=== PATIENT | female | born 1945 | race Caucasian/White ===

== ENCOUNTER 2016-09-24 15:57 | Inpatient (IN) | payer MEDICARE, BC ==
[~2016-09-24] VITALS: Ht 165.1 cm; Wt 98.8 kg
[2016-10-08] MEDS ORDERED: VITA500T4 PO (09:49)
[2016-10-08] MEDS ORDERED: OMEP20TA PO (09:49)
[2016-10-08] MEDS ORDERED: LEVO25TA4 PO (09:49)
[2016-10-08] MEDS ORDERED: LEVO200T4 PO (09:49)
[2016-10-08] MEDS ORDERED: TRIA37.53 PO (09:49)
[2016-10-11 06:00] VITALS: BP 176/128; PULSE 83; RESP 16; TEMP 97.9; O2SAT 95
[2016-10-11] MEDS ORDERED: metroNIDAZOLE 500 MG INJ 100 ML IV SCH (07:15)
[2016-10-11] MEDS ORDERED: POVIDONE IODINE 5% (ANTISEPSIS KIT) 4 APPLICATIONS EACH NARE PRN (07:15)
[2016-10-11] MEDS ORDERED: METOPROLOL TARTRATE 25 MG TAB PO PRN (07:15)
[2016-10-11] MEDS ORDERED: CHLORHEXIDINE GLUCONATE 2 % 1 PACK (2 CLOTHS) TOPICAL PRN (07:15)
[2016-10-11] MEDS ORDERED: SODIUM CHLORID 0.9% 500 ML IV PRN (07:15)
[2016-10-11] MEDS ORDERED: APREPITANT 40 MG CAP PO SCH (07:15)
[2016-10-11] MEDS ORDERED: SCOPOLAMINE 1.5 MG PATCH T-DERMAL SCH (07:15)
[2016-10-11] MEDS ORDERED: LACTATED RINGER'S 1000 ML IV PRN (07:15)
[2016-10-11] MEDS ORDERED: ceFAZolin 2 GM PREMIX 50 ML IV SCH (07:15)
[2016-10-11] MEDS ORDERED: ACETAMINOPHEN 1000 MG/100 ML VIAL IV SCH (07:15)
[2016-10-11] MEDS ORDERED: INSULIN HUMAN REGULAR 1,000 UNITS/10 ML VIAL SQ PRN (07:15)
[2016-10-11] MEDS ORDERED: ONDANSETRON HCL 4 MG/2 ML VIAL IV PUSH SCH (07:15)
[2016-10-11] MEDS ORDERED: BUPIVACAINE/EPINEPHRINE 0.25% 50 ML VIAL ONE (08:34)
[2016-10-11] MEDS ORDERED: MIDAZOLAM HCL 2 MG/2 ML VIAL ONE (09:54)
[2016-10-11] MEDS ORDERED: FAMOTIDINE 20 MG/2 ML VIAL ONE (09:54)
[2016-10-11] MEDS ORDERED: METHYLENE BLUE 100 MG/10 ML VIAL NG ONE (10:42)
[2016-10-11] MEDS ORDERED: LACTATED RINGER'S 1000 ML INJ 1,000 ML IV ONE (11:59)
[2016-10-11] MEDS ORDERED: NEOSTIGMINE 3 MG/3 ML SYR IV ONE (11:59)
[2016-10-11] MEDS ORDERED: ONDANSETRON HCL 4 MG/2 ML VIAL IV PUSH ONE (11:59)
[2016-10-11] MEDS ORDERED: PROPOFOL 200 MG/20 ML AMP IV ONE (11:59)
[2016-10-11] MEDS ORDERED: Post-op Orders (for Pharmacy) MISC OTHER ONE (12:30)
[2016-10-11] MEDS ORDERED: ENALAPRILAT 1.25 MG/ML VIAL IV PUSH PRN (12:30)
[2016-10-11] MEDS ORDERED: ONDANSETRON HCL 4 MG/2 ML VIAL IV PRN (12:30)
[2016-10-11] MEDS ORDERED: ACETAMINOPHEN 325MG/HYDROcodone 7.5MG/15ML UDC PO PRN ×2 (12:30)
[2016-10-11] MEDS ORDERED: SODIUM CHLORIDE 0.9% FLUSH 10 ML FLUSH IV FLUSH PRN ×2 (12:30)
[2016-10-11] MEDS ORDERED: diphenhydrAMINE HCL 50 MG/ML VIAL IV PRN (12:30)
[2016-10-11] MEDS ORDERED: diphenhydrAMINE HCL ELIXIR 12.5 MG/5 ML CUP PO PRN (12:30)
[2016-10-11] MEDS ORDERED: NALOXONE HCL 0.4 MG/ML AMP IV PRN (12:30)
[2016-10-11] MEDS ORDERED: Post-op Orders (for Pharmacy) MISC XX ONE (12:30)
[2016-10-11] MEDS ORDERED: MORPHINE SULFATE 30 MG/30 ML PCA IV SCH (12:45)
[2016-10-11] MEDS ORDERED: HYDROmorphone HCL 2 MG TAB PO PRN (13:00)
[2016-10-11] MEDS ORDERED: fentaNYL CITRATE 250 MCG/5 ML AMP ONE ×2 (13:08→16:34)
[2016-10-11] MEDS ORDERED: *morphine SULFATE 8 MG/ML PERIprocedure ONLY ONE ×2 (13:12→13:27)
[2016-10-11] MEDS: 1/2 NS + KCL 20 MEQ INJ 1,000 ML IV SCH ×2 (13:14→20:13)
[2016-10-11] MEDS ORDERED: DO NOT ADM ANY ANTICOAGULANT DRUGS PRN (13:30)
[2016-10-11] MEDS: METOCLOPRAMIDE HCL 10 MG/2 ML VIAL IV PUSH SCH ×2 (13:53→20:15)
[2016-10-11 14:30] VITALS: BP 118/56; PULSE 90; RESP 18; TEMP 97.2; O2SAT 93
[2016-10-11] MEDS: metroNIDAZOLE 500 MG INJ 100 ML IV SCH ×2 (15:35→22:20)
[2016-10-11 16:00] VITALS: BP 116/58; PULSE 87; RESP 16; TEMP 97; O2SAT 94
[2016-10-11] MEDS ORDERED: ENOXAPARIN SODIUM 40 MG/0.4 ML SYRINGE SQ SCH (17:00)
[2016-10-11 20:00] VITALS: BP 117/57; PULSE 96; RESP 18; TEMP 96.4; O2SAT 92
[2016-10-11] MEDS: SODIUM CHLORIDE 0.9% FLUSH 10 ML FLUSH IV FLUSH SCH (20:13)
[2016-10-11] MEDS ORDERED: SODIUM CHLORIDE 0.9% FLUSH 10 ML FLUSH IV FLUSH SCH (21:00)
[2016-10-11] MEDS: PCA - TOTAL MG MORPHINE DELIVERED PER SHIFT SCH (22:00)
[2016-10-11] MEDS: RESP: ALBUTEROL 2.5 MG/3 ML NEB (SCH) INH (22:43)
[2016-10-11 22:46] VITALS: O2SAT 95
[2016-10-12] MEDS: 1/2 NS + KCL 20 MEQ INJ 1,000 ML IV SCH ×4 (00:38→11:10)
[2016-10-12] MEDS: METOCLOPRAMIDE HCL 10 MG/2 ML VIAL IV PUSH SCH ×2 (00:41→08:27)
[2016-10-12 04:00] VITALS: BP 135/65; PULSE 115; RESP 20; TEMP 99.8; O2SAT 92
[2016-10-12] MEDS: RESP: ALBUTEROL 2.5 MG/3 ML NEB (SCH) INH ×5 (04:00→16:05)
[2016-10-12 05:44] LABS: AUTOMATED NEUTROPHIL # 11.4 TH/MM3 (1.8-7.7); BASOPHIL % 0.3 % (0.0-2.0); HEMATOCRIT 35.7 % (35.0-46.0); HEMO FLAGS DIFF FINAL; LYMPH % 8.7 % (9.0-44.0); LYMPHOCYTE # 1.2 TH/MM3 (1.0-4.8); MEAN CELL VOLUME 90.3 FL (80.0-100.0); MEAN CORPUSCULAR HEMOGLOBIN 30.5 PG (27.0-34.0); MEAN CORPUSCULAR HGB CONC 33.8 % (32.0-36.0); MONO % 6.1 % (0.0-8.0); NEUT % 84.9 % (16.0-70.0); PLATELET COUNT 279 TH/MM3 (150-450); RED BLOOD COUNT 3.95 MIL/MM3 (4.00-5.30); RED CELL DISTRIBUTION WIDTH 12.5 % (11.6-17.2); WHITE BLOOD COUNT 13.4 TH/MM3 (4.0-11.0)
[2016-10-12] MEDS: PCA - TOTAL MG MORPHINE DELIVERED PER SHIFT SCH ×2 (06:00→11:12)
[2016-10-12 06:02] LABS: BICARBONATE 26.7 MEQ/L (21.0-32.0); MAGNESIUM 1.6 MG/DL (1.5-2.5)
[2016-10-12 08:00] VITALS: BP 116/56; PULSE 80; RESP 19; TEMP 99.3; O2SAT 92
[2016-10-12] MEDS: metroNIDAZOLE 500 MG INJ 100 ML IV SCH (08:29)
[2016-10-12] MEDS: SODIUM CHLORIDE 0.9% FLUSH 10 ML FLUSH IV FLUSH SCH (08:32)
[2016-10-12 08:45] VITALS: O2SAT 88
[2016-10-12] MEDS ORDERED: PANTOPRAZOLE SOD 40 MG DELAYED RELEASE TAB PO SCH (09:00)
[2016-10-12] MEDS ORDERED: LEVOTHYROXINE SODIUM 200 MCG TAB PO SCH (10:00)
[2016-10-12] MEDS: POTASSIUM CHLOR 20 MEQ PREMIX 100 ML IV SCH ×2 (11:10→13:00)
--- NOTE | 2016-10-12 11:33 | HHI.PR ---
Subjective Subjective Notes 71yo female POD#1 RNY. Laying in bed in no acute distress. Tolerating fluids. Passing flatus Objective Vitals/I&O Vital Signs Date Time Temp Pulse Resp B/P Pulse Ox O2 Delivery O2 Flow Rate FiO2 10/12/16 08:54 Room Air 10/12/16 08:45 88 21 10/12/16 08:00 99.3 80 19 116/56 10/12/16 02:00 2.00 Labs Laboratory Tests Test 10/12/16 04:41 White Blood Count 13.4 Red Blood Count 3.95 Hemoglobin 12.0 Hematocrit 35.7 Mean Corpuscular Volume 90.3 Mean Corpuscular Hemoglobin 30.5 Mean Corpuscular Hemoglobin 33.8 Concent Red Cell Distribution Width 12.5 Platelet Count 279 Mean Platelet Volume 9.3 Neutrophils (%) (Auto) 84.9 Lymphocytes (%) (Auto) 8.7 Monocytes (%) (Auto) 6.1 Eosinophils (%) (Auto) 0.0 Basophils (%) (Auto) 0.3 Neutrophils # (Auto) 11.4 Lymphocytes # (Auto) 1.2 Monocytes # (Auto) 0.8 Eosinophils # (Auto) 0.0 Basophils # (Auto) 0.0 CBC Comment DIFF FINAL Differential Comment Sodium Level 138 Potassium Level 3.0 Chloride Level 98 Carbon Dioxide Level 26.7 Anion Gap 13 Blood Urea Nitrogen 11 Creatinine 0.85 Estimat Glomerular Filtration 66 Rate Random Glucose 147 Calcium Level 8.4 Magnesium Level 1.6 Cardiovascular: Regular Lungs: Clear Abdomen: Post-op tenderness Extremities: Perfused Wound Wound : Wound Location: Abdomen Appearance: Clean & Dry A/P Assessment and Plan Replace K with 40 RONEL Continue with frequent ambulation Continue to increase fluids as tolerated Continue to use IS hourly, deep breath and cough The exam, history, and the medical decision-making described in the above note were completed with the assistance of the mid-level provider. I reviewed and agree with the findings presented. I attest that I had a [id number] encounter with the patient on the same day, and personally performed and documented my assessment and findings in the medical record. Discharge Planning D/C home later today if continues to do well Arnoldo Enrique October 12, 2016 11:33 Dimitry Correa MD October 20, 2016 09:30
[2016-10-12] MEDS ORDERED: TRIA1CAP6 PO (11:37)
[2016-10-12 12:00] VITALS: BP 121/65; PULSE 102; RESP 18; TEMP 99; O2SAT 93
[2016-10-12] MEDS ORDERED: METOCLOPRAMIDE HCL 10 MG/2 ML VIAL IV PUSH PRN (14:00)
[2016-10-12 16:00] VITALS: BP 132/62; PULSE 103; RESP 18; TEMP 99.4; O2SAT 96
[2016-10-12 16:05] VITALS: O2SAT 96
--- NOTE | 2016-10-13 07:36 | MP ---
cc: LESLYE PULIDO DATE OF 1945 DATE OF OPERATION 10/11/2016 PREOPERATIVE DIAGNOSIS Severe obesity with a BMI of 46, complicated by essential hypertension, type 2 diabetes, gastroesophageal reflux disease. POSTOPERATIVE DIAGNOSES 1. Severe obesity with a BMI of 46, complicated by essential hypertension, type 2 diabetes, gastroesophageal reflux disease. 2. Moderate-sized hiatal hernia. PROCEDURE 1. Laparoscopic Marleni-en-Y gastric bypass, 100-cm Marleni limb, antegastric, antecolic. 2. Laparoscopic hiatal hernia repair. SURGEON Leslye Pulido MD COMMISSARY OFFICER MD Dr. Guillermo Dasilva was necessary for assistance during the procedure due to the complexity of the case. Dr. Li was necessary for exposure and manipulation during the operation as well as aiding in the anastomosis. The insurance legal assistant provided by [employer] was used to run the camera as well as man the back table. ANESTHESIA General endotracheal anesthesia. ESTIMATED BLOOD LOSS Scant. FINDINGS Fatty liver. Moderate sized hiatal hernia. SPECIMENS None. COMPLICATIONS None. OPERATION The patient was brought into the operating room and placed on the operating table in supine position. Bilateral sequential inflation devices were placed on the lower extremities, general anesthesia instituted, Morris catheter placed, antibiotics initiated. The abdomen was prepped and draped sterilely. A point 18 cm distal to the xiphoid in the midline was anesthetized with 0.25% Marcaine with epinephrine. A skin incision was made, a 5-mm Optiview port placed under direct vision and pneumoperitoneum created. Under direct vision, a 5-mm left upper quadrant, a 12-mm left upper quadrant, a 12-mm right upper quadrant and 5-mm right upper quadrant ports were placed. Prior to placement of all ports, the skin and peritoneum were anesthetized with 0.25% Marcaine with epinephrine. The patient patient's omentum was taken off of the abdominal wall using a harmonic. It was split down the middle to create a path for the Marleni limb. The ligament of Treitz was identified, a point 40 cm distal identified, the small bowel divided using an [place] Flex staple with a white load, reinforced with SeamGuard. The distal segment was brought up for a distance of 100 cm, enterotomy created in this region, enterotomy created in the biliopancreatic limb and a [id number] stapled jejunojejunostomy created in the usual manner. The mesenteric defect of the jejunojejunostomy was closed with 2-0 Surgidac suture in a running manner. The patient was placed in reverse Trendelenburg position, left side up. The Sivan Flex retractor placed and the left lobe of the liver retracted. After exposure, a hiatal hernia was noted. The left and right crura of the diaphragm was dissected anteriorly as well as posteriorly. The esophagus was retracted into the abdominal cavity, hernia sac excised. The crura of the diaphragm was approximated with 0 silk suture in a [id number]-[id number] manner posteriorly.The angle of His was taken down bluntly duing this dissection, a point 5 cm distal to the GE junction along the lesser curve identified, the lesser sac entered using blunt dissection, the stomach partitioned horizontally using the Mendix Flex stapler blue load. Additional firings were taken toward the angle of His to completely divide the stomach. A gastrotomy was created in the morgan-stomach, enterotomy in the Marleni limb, a gastrojejunostomy created with a stomal opening of 2 cm. An 18-[place] OG tube was placed across the anastomosis. The defect was then closed in two layers of running 2-0 Vicryl. Prior to placement of the second layer, methylene blue was instilled through the OG tube. There was no evidence of extravasation. Evicel was then placed over the gastrojejunostomy, jejunojejunostomy and all staple lines, a 10 flat YARED placed posterior to the gastrojejunostomy. The operative field was inspected. Hemostasis was present. The Sivan Flex retractor was removed. The tubing of the YARED was brought out through the 5-mm port site in the right upper quadrant. The pneumoperitoneum was released, all ports removed, all skin incisions closed with 4-0 Monocryl. The abdominal wall was cleaned and a sterile dressing placed. The patient was awakened and taken to recovery room stable. MD RYAN Gandara/ADEEL /12:45 PM /7:18 AM MARLEY
== END 2016-10-12 17:33 | disposition home or self-care (01) | DRG 621 ==
LOC: HSDI 10-11 05:43 → N07A 10-11 14:24
PROVIDERS: ADMIT Surgery; ATTEND Surgery
PROC: 0BQS4ZZ (ICD-10-PCS; 2016-10-11)
PROC: 0BQR4ZZ (ICD-10-PCS; 2016-10-11)
PROC: 0D164ZA Bypass Stomach to Jejunum, Percutaneous Endoscopic Approach (ICD-10-PCS; principal; 2016-10-11 09:58)
DX: E66.01 Morbid (severe) obesity due to excess calories (principal); E11.9 Type 2 diabetes mellitus without complications; I10 Essential (primary) hypertension; K44.9 Diaphragmatic hernia without obstruction or gangrene; Z68.42 Body mass index [BMI] 45.0-49.9, adult; K21.9 Gastro-esophageal reflux disease without esophagitis; E03.9 Hypothyroidism, unspecified; Z87.891 Personal history of nicotine dependence; Z88.2 Allergy status to sulfonamides
CPT/HCPCS: 80048; 83735; 85025; 94150; 94640; 94664; J0131; J0690; J1650; J2250; J2270; J2405; J2710; J2765; J3010; J3480; J7120; J7613; J8501

== ENCOUNTER 2018-02-05 08:59 | Inpatient (IN) ==
--- NOTE | 2018-02-05 17:14 | P.HP ---
History of Present Illness Primary Care Physician: Dayron Carrillo MD History of Present Illness: 22-year-old female with a history of Marleni-en-Y 15 months ago, hypothyroidism, type 2 diabetes, hypertension, gout presents to the ER after 3 days of suffering with abdominal pain and occasional nausea and vomiting. ER workup revealed a partial small bowel obstruction she was admitted for observation and evaluation by general surgeon. She denies any recent constipation, she denies any recent trauma, no melena or hematochezia. She simply had an unexplained attack of abdominal pain 3 days ago that did not respond to [id number] treatments with MiraLAX, etc. Her finally convinced her to come in for evaluation. He denies any chest pain, shortness of breath, diaphoresis. She has a history of cholecystectomy. She denies any rashes, blistering outbreaks, bruising. Inpatient Certification: I certify that the inpatient services were ordered in accordance with Medicare regulations governing the order. This includes certification that hospital inpatient services are reasonable and necessary and in the case of services not specified as inpatient-only under 42 CFR 419.22(n), that they are appropriately provided as inpatient services in accordance to with the 2-midnight benchmark under 43 CFR 412.3(e) Estimated Total Length of Stay (Days): 4 Plans for Post Hospital Care: Home Review of Systems All other systems reviewed negative except as stated in HPI PMFSH - History History Provided By: Patient - Medical History Medical History: Medical History (Last Reviewed 02/05/18 @ 09:36 by Kwame Campos MD) Cystocele Diabetes Gout H/O: hysterectomy Hypothyroidism Rectocele - Surgical History Surgical History: Surgical History (Last Reviewed 02/05/18 @ 09:36 by Kwame Campos MD) H/O gastric bypass History of cholecystectomy Hx of breast reduction, elective - Family History Family History: Family History (Last Updated 02/05/18 @ 17:09 by Rishi Milian MD) Other Hypertension - Tobacco History Second Hand Smoke Exposure: No Smoking Status: Former smoker - Alcohol History How Often Do You Have a Drink Containing Alcohol: 4 or more times a week - Substance Use History Substance History: No History of Abuse Medications and Allergies Active Medications: Active Medications Enoxaparin Sodium (Lovenox Inj) 40 mg SQ Q24H LUIS Sodium Chloride (Ns Inj) 1,000 mls @ 100 mls/hr IV.CONT .Q10H LUIS Morphine Sulfate (Morphine Inj) 4 mg IV.PUSH Q4H PRN PRN Reason: ABDOMINAL PAIN Ondansetron HCl (Zofran Inj) 4 mg IV.PUSH Q6H PRN PRN Reason: NAUSEA OR VOMITING Sennosides (Senokot) 17.2 mg PO Q12H PRN PRN Reason: Moderate Constipation Allergies Allergy/AdvReac Type Severity Reaction Status Date / Time Sulfa (Sulfonamide Allergy Severe Hives Unverified 02/05/18 09:01 Antibiotics) Home Medications Medication Instructions Recorded Confirmed Type allopurinol 100 mg PO BID 02/05/18 02/05/18 History levothyroxine 200 mcg PO DAILY 02/05/18 02/05/18 History Exam Vital signs: Vital Signs 02/05/18 16:37 Temperature 97.8 F Pulse Rate 80 Respiratory Rate 17 Blood Pressure 146/75 H Pulse Oximetry 93 L Intake & Output 02/04/18 02/05/18 02/05/18 18:59 06:59 18:59 Weight 1000 g Narrative: GENERAL: AAOx3, moderate distress but able to left, adequate nutrition SKIN: Warm and dry, no rashes. HEAD: Atraumatic. Normocephalic. EYES: Pupils equal, round, reactive to light. No scleral icterus. No injection or drainage. ENT: No nasal bleeding or discharge. Moist mucous membranes. NG tube in place NECK: Trachea midline. No JVD. Thyroid size within normal limits. CARDIOVASCULAR: Regular rate and rhythm. No murmur, no gallops, no rubs. RESPIRATORY: Clear and equal to auscultation bilaterally. No crackles, no wheezes. No accessory muscle use. GASTROINTESTINAL: Abdomen is diffusely tender but relatively soft, nondistended , hypoactive bowel sounds. MUSCULOSKELETAL: Extremities without clubbing or cyanosis. No obvious deformities. No edema. NEUROLOGICAL: Awake and alert. No obvious cranial nerve deficits. Motor grossly within normal limits. No focal deficits. Five out of 5 muscle strength in the arms and legs. Normal speech. PSYCHIATRIC: Appropriate mood and affect; insight and judgment normal. Caprini VTE Risk Assessment Caprini VTE Risk Assessment: Moderate/High Risk (score >= 2) Caprini Risk Assessment Model: Point Value = 1 Point Value = 2 Point Value = 3 Point Value = 5 Age 41-60 Minor surgery BMI > 25 kg/m2 Swollen legs Varicose veins or History of unexplained or recurrent spontaneous Oral contraceptives or hormone replacement Sepsis (< 1 month) Serious lung disease, including pneumonia (< 1 month) Abnormal pulmonary function Acute myocardial infarction Congestive heart failure (< 1 month) History of inflammatory bowel disease Medical patient at bed rest Age 61-74 Arthroscopic surgery Major open surgery (> 45 min) Laparoscopic surgery (> 45 min) Malignancy Confined to bed (> 72 hours) Immobilizing plaster cast Central venous access Age >= 75 History of VTE Family history of VTE Factor V Leiden Prothrombin [id number] Lupus anticoagulant Anticardiolipin antibodies Elevated serum homocysteine Heparin-induced thrombocytopenia Other congenital or acquired thrombophilia Stroke (< 1 month) Elective arthroplasty Hip, pelvis, or leg fracture Acute spinal cord injury (< 1 month) Prophylaxis Regimen: Total Risk Factor Score Risk Level Prophylaxis Regimen 0-1 Low Early ambulation 2 Moderate Order ONE of the following: *Sequential Compression Device (SCD) *Heparin 5000 units SQ BID 3-4 Higher Order ONE of the following medications: *Heparin 5000 units SQ TID *Enoxaparin/Lovenox 40 mg SQ daily (WT < 150 kg, CrCl > 30 mL/min) *Enoxaparin/Lovenox 30 mg SQ daily (WT < 150 kg, CrCl > 10-29 mL/min) *Enoxaparin/Lovenox 30 mg SQ BID (WT < 150 kg, CrCl > 30 mL/min) AND/OR *Sequential Compression Device (SCD) 5 or more Highest Order ONE of the following medications: *Heparin 5000 units SQ TID (Preferred with Epidurals) *Enoxaparin/Lovenox 40 mg SQ daily (WT < 150 kg, CrCl > 30 mL/min) *Enoxaparin/Lovenox 30 mg SQ daily (WT < 150 kg, CrCl > 10-29 mL/min) *Enoxaparin/Lovenox 30 mg SQ BID (WT < 150 kg, CrCl > 30 mL/min) AND *Sequential Compression Device (SCD) Assessment and Plan - Plan Partial small bowel obstruction ER CT confirms partial small bowel obstruction General surgery, Dr. Li, covering for Dr. Quinonez [place] [facility] patient n.p.o., ice chips added Continue IV fluid hydration Continue morphine as needed for pain Appreciate general surgery consult Hypothyroidism Resume levothyroxine when p.o. resumed h/o type 2 diabetes Patient is in remission following 80 pounds weight loss Consider diabetic diet h/o hypertension In remission following 80 pound weight loss Monitor with vital signs h/o gout No recent outbreaks DVT Prophylaxis Lovenox
[2018-02-05] MEDS: Sod Chloride 0.9% Inj 1,000 ML IV.CONT SCH (17:24)
[2018-02-05] MEDS: Morphine Inj 4 MG/ML Vial IV.PUSH PRN ×2 (17:26→21:18)
[2018-02-05] MEDS: Enoxaparin Inj 40 MG/0.4 ML Syringe SQ SCH (17:26)
[2018-02-06] MEDS: Morphine Inj 4 MG/ML Vial IV.PUSH PRN ×5 (03:17→21:39)
[2018-02-06] MEDS: Sod Chloride 0.9% Inj 1,000 ML IV.CONT SCH (03:17)
[2018-02-06 07:36] LABS: Hematocrit 37.3 % (35.0-46.0); Mean Corpuscular HGB Conc 34.8 % (32.0-36.0); Mean Corpuscular Hemoglobin 34.4 pg (27.0-34.0); Mean Corpuscular Volume 98.8 fL (80.0-100.0); Mean Platelet Volume 8.7 fL (7.0-11.0); Platelet Count 203 th/mm3 (150-450); Red Blood Count 3.78 mil/mm3 (4.00-5.30); Red Cell Distribution Width 12.5 % (11.6-17.2)
[2018-02-06 07:43] LABS: Anion Gap 10 meq/L (5-15); Blood Urea Nitrogen 17 mg/dL (7-18); Calcium 8.2 mg/dL (8.5-10.1); Carbon Dioxide 26.1 meq/L (21.0-32.0); Chloride 106 meq/L (98-107); Glomerular Filtration Rate Greater Than 89 mL/min (>89); Glucose,Random 61 mg/dL (74-106); Potassium 3.9 meq/L (3.5-5.1); Sodium 142 meq/L (136-145)
--- NOTE | 2018-02-06 08:29 | XR ---
EXAM DATE: 02/06/2018 8:18 AM EDT AGE/SEX: 72 years / Female INDICATIONS: Bilateral abdominal pain. CLINICAL DATA: This is the patient's initial encounter. Patient reports that signs and symptoms have been present for 4 - 6 days and indicates a pain score of 5/10. MEDICAL/SURGICAL HISTORY: None. Hysterectomy. Abdominoplasty. COMPARISON: [facility], CT ABDOMEN & PELVIS W CONTRAST, 02/05/2018. . FINDINGS: There is contrast media within the urinary bladder and descending colon. Dilated small bowel loops ov erlie the midabdomen and right lower quadrant. NG tube is present and the tip terminates at the proxi mal stomach. Cholecystectomy clips are noted. CONCLUSION: There is some contrast seen within the large bowel and dilated small bowel loops are present. Electronically signed by: Franklin Flores MD 02/06/2018 8:28 AM EDT
--- NOTE | 2018-02-06 08:46 | MB ---
cc: David Li MD DATE: 02/06/2018 CHIEF COMPLAINT: Abdominal pain, obstruction. Consultation from Dr. Quintana HISTORY OF PRESENT ILLNESS: The patient is a 22-year-old female who presented to [facility] with several medical issues including morbid obesity, status post gastric bypass 15 months ago. The patient states she has had a now 4-day history of abdominal pain. She states on Tuesday, she had severe pain worse with movement and better when lying still. She has had similar gas pains before, but this was more severe. She attempted MiraLax without success and actually ended up vomiting this up. She has minimal nausea and had a bowel movement on Tuesday but has not had any since and is not currently passing gas. She had further workup including a CT scan showing concern for small bowel obstruction, transition in the right lower quadrant near the terminal ileum with associated questionable mesenteric infarct versus mass. Currently on my exam, she does have some pain. She states it is a 6 to 7/10 and has improved and is controlled with some pain medication. She has mild distention, but has relatively soft abdomen. She does have an NG tube in place with minimal output and denies any current nausea or vomiting. PAST MEDICAL HISTORY: Diabetes, gout, rectocele, cystocele, hypothyroidism. morbid obesity PAST SURGICAL HISTORY: Hysterectomy, abdominoplasty, gastric bypass laparoscopic 15 months ago, cholecystectomy, breast reduction. SOCIAL HISTORY: Denies smoking, occasional ETOH. Denies IVDA. ALLERGIES: SULFA. FAMILY HISTORY: Mother with hypertension. MEDICATIONS: See EMR. REVIEW OF SYSTEMS: GENERAL: Denies fevers or chills. HEENT: Denies eye pain or ear pain. NECK: Denies swelling. LUNGS: No cough, wheeze. HEART: Denies palpitations or chest pain. ABDOMEN: Complains of abdominal pain and mild nausea. GENITOURINARY: Denies dysuria or hematuria. ENDOCRINE: Denies polyuria or polydipsia. INTEGUMENT: Denies any masses or lesions. NEUROLOGIC: Denies any numbness or tingling. PSYCHIATRIC: Denies any change in mood or sensorium. PHYSICAL EXAMINATION: GENERAL: The patient in no acute distress. VITAL SIGNS: Temperature 97.8, pulse 76, respirations 18, blood pressure 119/56, saturation 94%. HEENT: Pupils equal, round, and reactive. NECK: Supple. Trachea midline. LUNGS: Clear to auscultation bilaterally. Equal expansion. HEART: S1, S2. Regular. ABDOMEN: Soft, minimal distention. Positive tenderness to palpation in the right lower quadrant. Positive tenderness to palpation in left upper quadrant. No rebound, no guarding. EXTREMITIES: Warm and well perfused. NEUROLOGIC: 5/5 motor all extremities. GCS 15. INTEGUMENT: No obvious masses or lesions. PSYCHIATRIC: Appropriate mood, appropriate insight. LABORATORY AND DIAGNOSTIC DATA: Current labs pending. Admission labs, WBC 11.4, hemoglobin 15.6, hematocrit 44, platelets 291. Sodium 138, potassium 42.2, chloride 100, BUN 16, creatinine 0.8, lactate 1.3, bilirubin 1.5, AST 18, ALT 25, lipase 95. CT reviewed by myself showing multiple small bowel loop dilations, partial small bowel obstruction with transition point, questionable 6 cm fat attenuation mass right lower quadrant. ASSESSMENT: The patient is a 72-year-old female with acute onset of abdominal pain, small bowel obstruction, history of gastric bypass, multiple surgeries. PLAN: After full workup, the patient has the above the issues. At this point, the patient has NG tube in place for decompression. She does have what appears to be a small bowel obstruction. The colon is not completely decompressed and there is minimal air within the colon. This may be partial obstruction. The patient's clinical exam appears similar; however, some improvement from admission. At this point, we will continue observation. We will recheck abdominal x-ray. Current labs pending. We will followup on these and continue with abdominal exams. Discussed with the patient the risk of adhesions and scar tissue and further discussed the possibility of a diagnostic laparoscopy pending clinical course; however, we will initially attempt nonoperative management. The patient understands and agrees. MD RIP Manzo/masha , 07:55 AM , 08:06 AM MTDGeorgia
--- NOTE | 2018-02-06 11:34 | P.PNIM ---
Subjective Interval history: Decreased nausea. This could be because of the bowel obstruction has resolved versus NG tube. Patient has no new complaints today. Vomiting is not present today. Physical Exam Vital signs: Vital Signs 02/05/18 16:37 02/05/18 20:00 02/06/18 00:00 Temperature 97.8 F 98.3 F 97.8 F Pulse Rate 80 78 76 Respiratory Rate 17 20 18 Blood Pressure 146/75 H 134/67 119/56 L Pulse Oximetry 93 L 94 L 94 L 02/06/18 04:00 02/06/18 08:00 Temperature 97.6 F 97.4 F L Pulse Rate 76 83 Respiratory Rate 18 17 Blood Pressure 135/67 137/62 Pulse Oximetry 94 L 92 L Intake & Output 02/05/18 02/06/18 02/06/18 18:59 06:59 18:59 Intake Total 1000 / 1000 Output Total 50 / 50 Balance 950 / 950 Weight 71.4 kg 71.6 kg Intake: IV 1000 / 1000 NS Inj 1,000 ML @ 100 mls/hr IV 1000 / 1000 .CONT .Q10H LUIS Rx#:[id number] Oral 0 / 0 Output: Gastric Drainage 50 / 50 Pre-Hospital Left Nare 50 / 50 Other: # Voids 0 Date of Last Bowel Movement 02/05/18 02/05/18 Weight On Admission 71.4 kg Narrative: GENERAL: NAD, A&Ox3 HEAD: Normocephalic. NG tube present. NECK: Supple, trachea midline. No lymphadenopathy. EYES: No scleral icterus. No injection or drainage. CARDIOVASCULAR: Regular rate and rhythm without murmurs, gallops, or rubs. RESPIRATORY: Breath sounds equal bilaterally. No accessory muscle use. GASTROINTESTINAL: Abdomen soft, non-tender, nondistended. MUSCULOSKELETAL: No cyanosis, or edema. SKIN: Warm and dry. NEURO: No focal neurological deficits. Results - Labs CBC & Chem 7: 02/06/18 06:05 02/06/18 06:05 Laboratory Results - last 24 hr 02/06/18 02/06/18 06:05 06:05 WBC 8.0 RBC 3.78 L Hgb 13.0 D Hct 37.3 MCV 98.8 MCH 34.4 H MCHC 34.8 RDW 12.5 Plt Count 203 D MPV 8.7 Sodium 142 Potassium 3.9 Chloride 106 Carbon Dioxide 26.1 Anion Gap 10 BUN 17 Creatinine 0.63 Estimated GFR Greater than 89 Random Glucose 61 L Calcium 8.2 L D - Imaging Impressions Abdomen X-Ray 02/06/18 00:00 There is contrast media within the urinary bladder and descending colon. Dilated small bowel loops overlie the midabdomen and right lower quadrant. NG tube is present and the tip terminates at the proximal stomach. Cholecystectomy clips are noted. CONCLUSION: There is some contrast seen within the large bowel and dilated small bowel loops are present. Assessment and Plan - Plan small bowel obstruction Gastric bypass surgery General surgeon following Continue n.p.o. NG tube present Continue IV fluids Continue morphine for pain Follow-up abdominal imaging pending Hypothyroidism Plan to resume levothyroxine when p.o. resumed h/o type 2 diabetes Patient is in remission following 80 pounds weight loss Consider diabetic diet when patient able to take p.o. h/o hypertension In remission following 80 pound weight loss Monitor with vital signs h/o gout No recent outbreaks DVT Prophylaxis Lovenox
[2018-02-06] MEDS: Dextrose 5%/NaCl 0.45% Inj 1,000 ML IV.CONT SCH (12:39)
[2018-02-06] MEDS: Enoxaparin Inj 40 MG/0.4 ML Syringe SQ SCH (17:10)
[2018-02-07] MEDS: Dextrose 5%/NaCl 0.45% Inj 1,000 ML IV.CONT SCH ×4 (01:01→22:33)
[2018-02-07] MEDS ORDERED: Chlorhexidine Gluconate 2% 1 Pack (2 Cloths) TOPICAL ONE (01:23)
[2018-02-07] MEDS: Morphine Inj 4 MG/ML Vial IV.PUSH PRN ×4 (01:43→22:33)
[2018-02-07 07:11] LABS: Baso % (Auto) 0.4 % (0.0-2.0); Eos # (Auto) 0.1 th/mm3 (0.0-0.4); Eos % (Auto) 1.6 % (0.0-4.0); Hematocrit 37.1 % (35.0-46.0); Hemoglobin 12.8 gm/dL (11.6-15.3); Lymph # (Auto) 0.9 th/mm3 (1.0-4.8); Lymph % (Auto) 12.5 % (9.0-44.0); Mean Corpuscular HGB Conc 34.6 % (32.0-36.0); Mean Corpuscular Hemoglobin 34.2 pg (27.0-34.0); Mean Platelet Volume 8.6 fL (7.0-11.0); Mono # (Auto) 0.8 th/mm3 (0.0-0.9); Mono % (Auto) 10.1 % (0.0-8.0); Neut # (Auto) 5.7 th/mm3 (1.8-7.7); Neut % (Auto) 75.4 % (16.0-70.0); Platelet Count 187 th/mm3 (150-450); Red Blood Count 3.75 mil/mm3 (4.00-5.30); Red Cell Distribution Width 12.4 % (11.6-17.2); White Blood Count 7.5 th/mm3 (4.0-11.0)
[2018-02-07 07:38] LABS: Albumin 3.1 g/dL (3.4-5.0); Anion Gap 10 meq/L (5-15); Aspartate Aminotransferase 28 U/L (15-37); Blood Urea Nitrogen 10 mg/dL (7-18); Calcium 8.3 mg/dL (8.5-10.1); Carbon Dioxide 27.1 meq/L (21.0-32.0); Chloride 101 meq/L (98-107); Glomerular Filtration Rate Greater Than 89 mL/min (>89); Glucose,Random 109 mg/dL (74-106); Potassium 3.7 meq/L (3.5-5.1); Sodium 138 meq/L (136-145)
[2018-02-07 07:39] LABS: Alanine Aminotransferase 30 U/L (10-53)
[2018-02-07 07:41] LABS: Alkaline Phosphatase 92 U/L (45-117); Total Protein 6.2 g/dL (6.4-8.2)
--- NOTE | 2018-02-07 07:59 | ECG ---
Date Performed: 02/07/2018 Time Performed: 07:34:23 PTAGE: 72 years EKG: Sinus rhythm POSSIBLE ANTERIOR MYOCARDIAL INFARCTION , OF INDETERMINATE AGE ABNORMAL ECG NO PREVIOUS TRACING DOCTOR: Adán Dukes Interpretating Date/Time 02/07/2018 07:58:22
[2018-02-07] MEDS ORDERED: Bupivacaine/Epinephrine 0.5% Inj 50 ML Vial ONE (10:07)
[2018-02-07] MEDS ORDERED: Bupivacaine/Epinephrine Inj 0.25% 50 ML Vial ONE (10:08)
[2018-02-07] MEDS ORDERED: ceFAZolin 2 GM Premix Inj 2 GM/50 ML PIGGYBACK IV.SIG ONE (10:42)
[2018-02-07] MEDS ORDERED: Succinylcholine Inj 100 MG/5 ML Syringe IV.PUSH ONE (11:21)
[2018-02-07] MEDS ORDERED: Lidocaine PF 1% Inj 5 ML Syringe INFILTRATN ONE (11:21)
--- NOTE | 2018-02-07 11:55 | P.OP ---
- Preoperative Diagnosis (1) Small bowel obstruction due to adhesions - Postoperative Diagnosis (1) Small bowel obstruction due to adhesions Date of procedure: 02/07/18 Procedure: dx lap lap grace lap resection of mesenteric mass Anesthesia: GETA Surgeon: David Li MD Bias Cutter Helper: Dimitry Correa Estimated blood loss (mL): 5 Operation and Findings: several adhesion bands from mesenteric mass RLQ,
[2018-02-07] MEDS ORDERED: fentaNYL Citrate Inj 100 MCG/2 ML Ampul ONE ×2 (14:26→14:27)
--- NOTE | 2018-02-07 15:10 | P.PNIM ---
Subjective Interval history: Status post Laparoscopic adhesion lysis surgery. Doing well. No complaints. Physical Exam Vital signs: Vital Signs 02/06/18 16:00 02/06/18 20:00 02/07/18 00:00 Temperature 98.4 F 97.1 F L 98.5 F Pulse Rate 80 76 73 Respiratory Rate 17 20 18 Blood Pressure 138/71 149/70 H 136/65 Pulse Oximetry 93 L 93 L 94 L 02/07/18 08:00 02/07/18 12:23 02/07/18 12:25 Temperature 98.6 F 98.8 F Pulse Rate 82 88 Respiratory Rate 17 20 Blood Pressure 145/67 H 140/57 L Pulse Oximetry 95 97 97 02/07/18 12:30 02/07/18 12:45 02/07/18 13:00 Temperature 97.8 F Pulse Rate 80 81 82 Respiratory Rate 16 15 16 Blood Pressure 134/67 132/57 L 139/63 Pulse Oximetry 98 98 96 02/07/18 13:05 Temperature Pulse Rate Respiratory Rate Blood Pressure Pulse Oximetry 94 L Intake & Output 02/06/18 02/07/18 02/07/18 18:59 06:59 18:59 Intake Total 1000 / 1000 1000 / 1000 3000 / 3000 Output Total 300 / 300 225 / 225 10 Balance 700 / 700 775 / 775 2990 / 2990 Weight 70.6 kg Intake: IV 1000 / 1000 1000 / 1000 1000 / 1000 D5W/1/2 NS Inj 1,000 ML @ 84 1000 / 1000 1000 / 1000 mls/hr IV.CONT .[id number] [facility] Rx# :[id number] NS Inj 1,000 ML @ 100 mls/hr IV 1000 / 1000 .CONT .Q10H [facility] Rx#:[id number] Anesthesia Amount 1999 Output: Estimated Blood Loss Gastric Drainage 300 / 300 225 / 225 Pre-Hospital Left Nare 300 / 300 225 / 225 Other: # Voids 2 2 1 Date of Last Bowel Movement 02/05/18 02/05/18 Narrative: GENERAL: NAD, A&Ox3 HEAD: Normocephalic. NECK: Supple, trachea midline. No lymphadenopathy. EYES: No scleral icterus. No injection or drainage. CARDIOVASCULAR: Regular rate and rhythm without murmurs, gallops, or rubs. RESPIRATORY: Breath sounds equal bilaterally. No accessory muscle use. GASTROINTESTINAL: Abdomen soft, non-tender, nondistended. MUSCULOSKELETAL: No cyanosis, or edema. SKIN: Warm and dry. NEURO: No focal neurological deficits. Results - Labs CBC & Chem 7: 02/07/18 06:00 02/07/18 06:00 Laboratory Results - last 24 hr 02/07/18 02/07/18 02/07/18 06:00 06:00 06:00 WBC 7.5 RBC 3.75 L Hgb 12.8 Hct 37.1 MCV 99.0 MCH 34.2 H MCHC 34.6 RDW 12.4 Plt Count 187 MPV 8.6 Neut % (Auto) 75.4 H Lymph % (Auto) 12.5 Warrick % (Auto) 10.1 H Eos % (Auto) 1.6 Baso % (Auto) 0.4 Neut # (Auto) 5.7 Lymph # (Auto) 0.9 L Warrick # (Auto) 0.8 Eos # (Auto) 0.1 Baso # (Auto) 0.0 WBC Differential . Differential Comment Auto diff final Sodium 138 Potassium 3.7 Chloride 101 Carbon Dioxide 27.1 Anion Gap 10 BUN 10 Creatinine 0.54 Estimated GFR Greater than 89 Random Glucose 109 H Calcium 8.3 L Total Bilirubin 1.2 H AST 28 ALT 30 Alkaline Phosphatase 92 Total Protein 6.2 L D Albumin 3.1 L D Blood Type B Positive Blood Type Recheck Required Antibody Screen Negative Assessment and Plan - Plan 72 year old female admitted with SBO small bowel obstruction Gastric bypass surgery Status post laparoscopic adhesion lysis Improving now General surgeon following Continue n.p.o. NG tube present Continue IV fluids Continue morphine for pain Follow-up abdominal imaging pending Hypothyroidism Plan to resume levothyroxine when p.o. resumed h/o type 2 diabetes Patient is in remission following 80 pounds weight loss Consider diabetic diet when patient able to take p.o. h/o hypertension In remission following 80 pound weight loss Monitor with vital signs h/o gout No recent outbreaks DVT Prophylaxis Lovenox
[2018-02-07] MEDS: Enoxaparin Inj 40 MG/0.4 ML Syringe SQ SCH (18:36)
--- NOTE | 2018-02-07 21:08 | MP ---
cc: David Li MD DATE OF OPERATION: 02/07/2018 PREOPERATIVE DIAGNOSIS: Small bowel obstruction. POSTOPERATIVE DIAGNOSIS: Small bowel obstruction. PROCEDURE PERFORMED: 1. Diagnostic laparoscopy. 2. Laparoscopic lysis of adhesions. 3. Excision of mesenteric mass. 4. mobilization of the jejunojunostomy SURGEON: David Li MD ENERGY SYSTEMS ENGINEER: Dr. Dimitry Quinonez. Dr. Dimitry Quinonez was needed due to the complexity of the case. Dr. Quinonez assisted in retraction and camera control. ANESTHESIA: GETA. IV FLUIDS: Per the anesthesia. ESTIMATED BLOOD LOSS: 5 mL DRAINS: None. SPECIMENS: None. WOUND CLASSIFICATION: Clean. FINDINGS: A right lower quadrant intra-abdominal pelvic adhesion from mesenteric mass including small bowel in 3 different spots near the terminal ileum. Viable bowel, otherwise. SPECIMENS: Mesenteric mass. Findings as noted. Intra-abdominal adhesions, right lower quadrant. COMPLICATIONS: None. INDICATION: The patient is a 72-year-old female with history of gastric bypass, history of multiple surgeries including a hysterectomy. The patient presents with vomiting and abdominal pain, right lower quadrant. CT scan findings showed concern for a questionable mass along with a bowel obstruction concerning for adhesions. Decision was made for operative intervention. DETAILS OF PROCEDURE: The patient was taken to the operating suite, placed in supine position. She was prepped and draped in the usual sterile fashion after induction of general endotracheal anesthesia. A brief timeout was done citing the correct patient, procedure, surgical site well and all were in agreement with this. Attention was first directed to the umbilicus where local anesthetic was injected. Small stab incision was made. With a 15 blade, the abdomen was insufflated and entered with the 5 mm Visiport Optiview scope. On cursory inspection, no evidence of injury. Abdomen insufflated to 15 mm of the pneumoperitoneum. Two other trocars, 5 mm were placed in the left lower quadrant and left upper quadrant. The patient was placed in Trendelenburg and airplaned to the left. There was noted to be some intraabdominal adhesions and dilated proximal loops of bowel. There was also a mesenteric mass that was not to connected to, but proximal to the transverse colon. The adhesions were lysed using Harmonic scalpel. Once this was done and decompression of bowel, the bowel was noted to pink up. There was noted to be 3 different, adhesions pretty close to each other with banding adhesion like. Next, the mesenteric mass was excised from the omentum again near the transverse colon. This was placed in an EndoCatch bag. The 5 mm port was upsized to a 12 mm port and the mass was removed through here. The jejunojejunostomy was evaluated and noted to have adhesions to the abdominal wall these were mobilized. No other masses were noted. The 12 mm port site was closed with 0 Vicryl in an open fashion in layers. The 5 mm port sites were closed with 4-0 Monocryl subcuticular sutures and sterile dressings. The patient tolerated the procedure well. There were no intraoperative complications. All lap and instrument counts were correct at the end of procedure, patient was extubated and taken stable to the PACU. MD RADHIKA ManzoN/alicia , 08:12 PM , 08:21 PM MARLEY
[2018-02-08] MEDS: Morphine Inj 4 MG/ML Vial IV.PUSH PRN ×4 (04:09→20:40)
[2018-02-08] MEDS: Dextrose 5%/NaCl 0.45% Inj 1,000 ML IV.CONT SCH ×2 (06:52→13:42)
[2018-02-08] MEDS: Enoxaparin Inj 40 MG/0.4 ML Syringe SQ SCH (16:18)
--- NOTE | 2018-02-08 17:14 | P.PNIM ---
Subjective Interval history: Patient had abdominal pain this morning so diet is not yet advanced. This afternoon when I am seeing her she has improvement in her abdominal pain. Postop abdominal pain is present, at wounds. No reports of deep or gastrointestinal discomfort. She is starting to feel better. Physical Exam Vital signs: Vital Signs 02/07/18 20:00 02/08/18 00:00 02/08/18 04:00 Temperature 99.3 F 98.6 F 99.1 F Pulse Rate 85 87 85 Respiratory Rate 18 18 18 Blood Pressure 123/61 108/56 L 119/59 L Pulse Oximetry 92 L 94 L 92 L 02/08/18 08:00 02/08/18 12:00 Temperature 99.7 F H 98.2 F Pulse Rate 81 80 Respiratory Rate 16 16 Blood Pressure 122/57 L 117/61 Pulse Oximetry 94 L 94 L Intake & Output 02/07/18 02/08/18 02/08/18 18:59 06:59 18:59 Intake Total 3000 / 3000 1000 / 1000 1000 / 1000 Output Total Balance 2990 / 2990 1000 / 1000 1000 / 1000 Weight 73.6 kg Intake: IV 1000 / 1000 1000 / 1000 1000 / 1000 D5W/1/2 NS Inj 1,000 ML @ 84 1000 / 1000 1000 / 1000 1000 / 1000 mls/hr IV.CONT .[id number] [facility] Rx# :[id number] Oral 0 / 0 Anesthesia Amount 1999 / 1999 Output: Estimated Blood Loss Other: # Voids 3 3 Date of Last Bowel Movement 02/05/18 02/05/18 # Bowel Movements 0 Narrative: GENERAL: NAD, A&Ox3 HEAD: Normocephalic. NECK: Supple, trachea midline. No lymphadenopathy. EYES: No scleral icterus. No injection or drainage. CARDIOVASCULAR: Regular rate and rhythm without murmurs, gallops, or rubs. RESPIRATORY: Breath sounds equal bilaterally. No accessory muscle use. GASTROINTESTINAL: Abdomen soft, non-tender, nondistended. Postop abdominal wounds. MUSCULOSKELETAL: No cyanosis, or edema. SKIN: Warm and dry. NEURO: No focal neurological deficits. Results - Labs CBC & Chem 7: 02/07/18 06:00 02/07/18 06:00 Assessment and Plan - Plan 72 year old female admitted with SBO small bowel obstruction Gastric bypass surgery Status post laparoscopic adhesion lysis Improving General surgeon following GI symptoms this morning, but improvement through the afternoon Advance from liquid diet to regular diet monitor GI symptoms Discontinue IV fluids Continue morphine for pain Hypothyroidism resume levothyroxine h/o type 2 diabetes Patient is in remission following 80 pounds weight loss Diabetic diet. h/o hypertension In remission following 80 pound weight loss Monitor with vital signs h/o gout No recent outbreaks DVT Prophylaxis Lovenox
[2018-02-08] MEDS: Allopurinol 100 MG Tablet PO SCH (21:39)
[2018-02-08 22:24] VITALS: RESP 18
[2018-02-09 00:53] VITALS: BP 122/58; PULSE 71; TEMP 98.1; O2SAT 92
[2018-02-09] MEDS: Morphine Inj 4 MG/ML Vial IV.PUSH PRN (06:43)
[2018-02-09] MEDS: Allopurinol 100 MG Tablet PO SCH (10:15)
--- NOTE | 2018-02-09 10:35 | P.PNGS ---
Subjective Patient reports: still having pain, flatus (doing a bit better) Physical Exam Vital signs: Vital Signs 02/08/18 12:00 02/08/18 16:00 02/08/18 20:00 Temperature 98.2 F 98.8 F 98.8 F Pulse Rate 80 92 H 83 Respiratory Rate 16 16 18 Blood Pressure 117/61 131/63 135/69 Pulse Oximetry 94 L 99 93 L 02/09/18 00:00 Temperature 98.1 F Pulse Rate 71 Respiratory Rate 18 Blood Pressure 122/58 L Pulse Oximetry 92 L Intake & Output 02/08/18 02/09/18 02/09/18 18:59 06:59 18:59 Intake Total 2400 / 2400 Balance 2400 / 2400 Weight 70 kg Intake: IV 1500 / 1500 D5W/1/2 NS Inj 1,000 ML @ 84 1500 / 1500 mls/hr IV.CONT .[id number] [facility] Rx# :[id number] Oral 900 / 900 Other: # Voids 3 2 Date of Last Bowel Movement 02/05/18 # Bowel Movements 2 - Constitutional no acute distress - Routine Respiratory Exam Present: CTA bilaterally - Routine Cardiovascular Exam Present: RRR - Routine Abdominal Exam Present: soft (incisional tenderness) Assessment and Plan - Plan POD 1 Dx lap, Lap MELLY, removal of mesenteric mass PLAN oob pain control advance diet slowly f/u path dvt ppx
--- NOTE | 2018-02-09 10:36 | P.PNGS ---
Subjective Patient reports: no new complaints, feels better, flatus, bowel movement Physical Exam Vital signs: Vital Signs 02/08/18 12:00 02/08/18 16:00 02/08/18 20:00 Temperature 98.2 F 98.8 F 98.8 F Pulse Rate 80 92 H 83 Respiratory Rate 16 16 18 Blood Pressure 117/61 131/63 135/69 Pulse Oximetry 94 L 99 93 L 02/09/18 00:00 Temperature 98.1 F Pulse Rate 71 Respiratory Rate 18 Blood Pressure 122/58 L Pulse Oximetry 92 L Intake & Output 02/08/18 02/09/18 02/09/18 18:59 06:59 18:59 Intake Total 2400 / 2400 Balance 2400 / 2400 Weight 70 kg Intake: IV 1500 / 1500 D5W/1/2 NS Inj 1,000 ML @ 84 1500 / 1500 mls/hr IV.CONT .[id number] [facility] Rx# :[id number] Oral 900 / 900 Other: # Voids 3 2 Date of Last Bowel Movement 02/05/18 # Bowel Movements 2 - Constitutional no acute distress - Routine Respiratory Exam Present: CTA bilaterally - Routine Cardiovascular Exam Present: RRR - Routine Abdominal Exam Present: soft, normoactive bowel sounds (less distended incision c/d/i) Assessment and Plan - Plan POD 2 Dx lap, Lap MELLY, removal of mesenteric mass PLAN oob pain control reg ada mikael diet f/u path dvt ppx d/c home today
--- NOTE | 2018-02-09 12:10 | P.DS ---
Date of admission: 02/05/18 12:10 Primary care physician: Dayron Carrillo MD Brief History from admission: 22-year-old female with a history of Marleni-en-Y 15 months ago, hypothyroidism, type 2 diabetes, hypertension, gout presents to the ER after 3 days of suffering with abdominal pain and occasional nausea and vomiting. ER workup revealed a partial small bowel obstruction she was admitted for observation and evaluation by general surgeon. She denies any recent constipation, she denies any recent trauma, no melena or hematochezia. She simply had an unexplained attack of abdominal pain 3 days ago that did not respond to [id number] treatments with MiraLAX, etc. Her finally convinced her to come in for evaluation. He denies any chest pain, shortness of breath, diaphoresis. She has a history of cholecystectomy. She denies any rashes, blistering outbreaks, bruising. DS: Medications - Discharge Medications Prescriptions: hydrocodone-acetaminophen 1 tab PO Q6H PRN #12 tab PRN Reason: Acute Pain DS: Summary Hospital Course: 72 year old female admitted with SBO small bowel obstruction Gastric bypass surgery Status post laparoscopic adhesion lysis Improving tolerating diet cleared for discharge by Dr. Li General surgeon following Continue pain management counseled regarding narcotic/Lortab. E force queried Hypothyroidism resume levothyroxine h/o type 2 diabetes Controlled following 80 pounds weight loss Diabetic diet. h/o hypertension In remission following 80 pound weight loss Monitor with vital signs h/o gout No recent outbreaks DVT Prophylaxis Lovenox - Time Spent with Patient Total time spent providing and/or coordinating discharge services: Greater than 30 minutes - Quality: VTE Deep Vein Thrombosis/Pulmonary Embolism Present on Admission: No Exam Vital signs: Vital Signs 02/08/18 16:00 02/08/18 20:00 02/09/18 00:00 Temperature 98.8 F 98.8 F 98.1 F Pulse Rate 92 H 83 71 Respiratory Rate 16 18 18 Blood Pressure 131/63 135/69 122/58 L Pulse Oximetry 99 93 L 92 L Intake & Output 02/08/18 02/09/18 02/09/18 18:59 06:59 18:59 Intake Total 2400 / 2400 Balance 2400 / 2400 Weight 70 kg Intake: IV 1500 / 1500 D5W/1/2 NS Inj 1,000 ML @ 84 1500 / 1500 mls/hr IV.CONT .[id number] [facility] Rx# :[id number] Oral 900 / 900 Other: # Voids 3 2 Date of Last Bowel Movement 02/05/18 # Bowel Movements 2 Narrative: GENERAL: NAD, A&Ox3 CARDIOVASCULAR: Regular rate and rhythm without murmurs, gallops, or rubs. RESPIRATORY: Breath sounds equal bilaterally. No accessory muscle use. GASTROINTESTINAL: Abdomen soft, non-tender, nondistended. Postop abdominal wounds. MUSCULOSKELETAL: No cyanosis, or edema. SKIN: Warm and dry. NEURO: No focal neurological deficits. Results Procedures completed during hospitalization: laparoscopic adhesion lysis Completed studies during hospitalization: Pending at discharge 02/07/18 12:43 Surgical [PTH] Routine - Impressions ITS Impressions Abdomen X-Ray 02/06/18 00:00 There is contrast media within the urinary bladder and descending colon. Dilated small bowel loops overlie the midabdomen and right lower quadrant. NG tube is present and the tip terminates at the proximal stomach. Cholecystectomy clips are noted. CONCLUSION: There is some contrast seen within the large bowel and dilated small bowel loops are present. Discharge Plan - Discharge Disposition Patient Disposition: Discharge Home - Discharge Condition Condition: Stable - Discharge Order Discharge Orders: Discharge Order (Routine); Ordered 02/09/18 Ordered By: Tae Rosario - Physicians Team Primary Care Provider: Dayron Carrillo Attending Provider: Tae Rosario Other Providers: David Li MD ; Surgeons,[facility] - Rxs /Orders / Referrals /Forms Prescriptions: New hydrocodone-acetaminophen 5-325 mg Tablet 1 tab PO Q6H PRN (Reason: Acute Pain) Qty: 12 RF: 0 Continue allopurinol 100 mg Tablet 100 mg PO BID levothyroxine 200 mcg Tablet 200 mcg PO DAILY Referrals: Dayron Carrillo MD [Primary Care Provider] - 02/14/18 10:30 am (1wk Follow up with Dr. [facility] [address] [place] [address] [phone]) David Li MD [Physician] - 02/17/18 11:10 am (1wk) - Post Discharge Care Plan Care Plan Goals: Your Health Problems: Goals to Promote Your Health: * To prevent worsening of your condition * To maintain your health at the optimal level Directions to Meet Your Goals: * Take your medications as prescribed * Follow your dietary instruction * Follow activity as directed * Keep your appointments as scheduled * Take your immunizations and boosters as scheduled * If your symptoms worsen call your PCP * If no PCP go to Urgent Care or Emergency Room Smoking is dangerous to your health. Avoid second hand smoke. You may reach the 24-hour crisis hotline for domestic abuse at .
== END 2018-02-09 12:53 | disposition home or self-care (01) ==
LOC: NEDDLT 08:59 → N07 12:10
PROVIDERS: ADMIT Internal Medicine; ATTEND Internal Medicine